=== PATIENT | male | born 1965 | race Two or more races ===

== ENCOUNTER → 2020-07-14 07:46 | Outpatient (CLI) | payer OTHER ==
[~2020-07-14 07:46] MED LIST: CADUET 10 MG-11 EACH PO; CADUET 10 MG/101 TAB PO; HYDROCHLOROTH12.5 M1 PO
== END | disposition home or self-care (01) ==
LOC: LAB 07:46
PROVIDERS: ATTEND Orthopaedic Surgery
DX: D64.89 Other specified anemias (principal); Z03.818 Encounter for observation for suspected exposure to other biological agents ruled out; E88.89 Other specified metabolic disorders; D68.8 Other specified coagulation defects; N39.0 Urinary tract infection, site not specified; Z22.322 Carrier or suspected carrier of Methicillin resistant Staphylococcus aureus; Z76.89 Persons encountering health services in other specified circumstances; I49.8 Other specified cardiac arrhythmias; I10 Essential (primary) hypertension

== ENCOUNTER 2020-07-21 08:58 | Day surgery (SDC) | payer OTHER | END 2020-07-21 18:00 | disposition home or self-care (01) | LOC: CIR.AMB 08:58 | PROVIDERS: ATTEND Orthopaedic Surgery | DX: M23.322 Other meniscus derangements, posterior horn of medial meniscus, left knee (principal); M65.862 Other synovitis and tenosynovitis, left lower leg; M94.262 Chondromalacia, left knee ==

== ENCOUNTER 2020-07-31 16:01 | Outpatient (CLI) | payer OTHER | END 2020-07-31 16:09 | disposition home or self-care (01) | LOC: RAD 16:01 | PROVIDERS: ATTEND Orthopaedic Surgery | DX: M23.222 Derangement of posterior horn of medial meniscus due to old tear or injury, left knee (principal) ==

== ENCOUNTER 2021-11-19 14:35 | Outpatient (CLI) | payer OTHER | END 2021-11-19 15:00 | disposition home or self-care (01) | LOC: NUCLEAR 14:35 | DX: M81.0 Age-related osteoporosis without current pathological fracture (principal); M85.9 Disorder of bone density and structure, unspecified; M85.89 Other specified disorders of bone density and structure, multiple sites; Z13.820 Encounter for screening for osteoporosis ==

== ENCOUNTER 2022-03-25 07:09 | Outpatient (CLI) | payer OTHER | END 2022-03-25 07:24 | disposition home or self-care (01) | LOC: LAB 07:09 | PROVIDERS: ATTEND Orthopaedic Surgery | DX: E55.9 Vitamin D deficiency, unspecified (principal); M85.9 Disorder of bone density and structure, unspecified; E56.1 Deficiency of vitamin K; E21.3 Hyperparathyroidism, unspecified; E88.9 Metabolic disorder, unspecified; M81.8 Other osteoporosis without current pathological fracture ==